=== PATIENT | female | born 1935 | race Caucasian/White ===

== ENCOUNTER 2017-09-18 02:56 | Outpatient (CLI) | payer MEDICARE ==
[~2017-09-18 02:56] MED LIST: AMLO2.5T2 PO; BIOIDENTICAL HORMONE; CARV25TA PO; DIGO250T PO; DULO60CA45 PO; FLEC100T2 PO; LEVO100T PO; LEVO1CAP3 PO; LIRA0.6P2 SUBCUT; METF500T PO; OMEP20TA23 PO; WARF3TAB PO; WARF5TAB PO
== END 2017-09-18 23:59 | disposition home or self-care (01) ==
LOC: DIABETIC 02:56
PROVIDERS: ATTEND Specialist
DX: E11.65 Type 2 diabetes mellitus with hyperglycemia (principal)
CPT/HCPCS: G0108

== ENCOUNTER 2017-12-16 04:20 | Outpatient (CLI) | payer MEDICARE | END 2017-12-16 23:59 | disposition home or self-care (01) | LOC: DIABETIC 04:20 | PROVIDERS: ATTEND Specialist | DX: E11.65 Type 2 diabetes mellitus with hyperglycemia (principal); I10 Essential (primary) hypertension | CPT/HCPCS: G0108 ==

== ENCOUNTER 2018-03-17 03:36 | Outpatient (CLI) | payer MEDICARE | END 2018-03-17 23:59 | disposition home or self-care (01) | LOC: DIABETIC 03:36 | PROVIDERS: ATTEND Specialist | DX: E11.9 Type 2 diabetes mellitus without complications (principal) | CPT/HCPCS: G0108 ==

== ENCOUNTER 2018-08-14 02:25 | Outpatient (CLI) | payer MEDICARE | END 2018-08-14 23:59 | disposition home or self-care (01) | LOC: DIABETIC 02:25 | PROVIDERS: ATTEND Specialist | DX: E11.9 Type 2 diabetes mellitus without complications (principal); I10 Essential (primary) hypertension; Z79.84 Long term (current) use of oral hypoglycemic drugs; Z90.710 Acquired absence of both cervix and uterus | CPT/HCPCS: G0108 ==

== ENCOUNTER 2018-11-27 03:45 | Outpatient (CLI) | payer MEDICARE | END 2018-11-27 23:59 | disposition home or self-care (01) | LOC: DIABETIC 03:45 | PROVIDERS: ATTEND Specialist | DX: E11.9 Type 2 diabetes mellitus without complications (principal) | CPT/HCPCS: G0108 ==

== ENCOUNTER 2019-02-18 08:54 | Outpatient (CLI) | payer MEDICARE, BC ==
[~2019-02-18] VITALS: Ht 167 cm; Wt 68.9 kg
[2019-02-18] MEDS ORDERED: albuterol 2.5 MG/3 ML nebule NEB PRN (09:30)
== END 2019-02-18 23:59 | disposition home or self-care (01) ==
LOC: RT 08:54
PROVIDERS: ATTEND Internal Medicine Critical Care Medicine
DX: J98.4 Other disorders of lung (principal); I10 Essential (primary) hypertension; E11.9 Type 2 diabetes mellitus without complications; Z79.899 Other long term (current) drug therapy
CPT/HCPCS: 94060; 94727; 94729; 94760

== ENCOUNTER 2019-03-12 08:00 | Outpatient (CLI) | payer MEDICARE, BC | END 2019-03-12 23:59 | disposition home or self-care (01) | LOC: DIABETIC 08:00 | PROVIDERS: ATTEND Family Medicine | DX: E11.65 Type 2 diabetes mellitus with hyperglycemia (principal); Z79.899 Other long term (current) drug therapy; Z79.84 Long term (current) use of oral hypoglycemic drugs; Z79.891 Long term (current) use of opiate analgesic; Z79.01 Long term (current) use of anticoagulants | CPT/HCPCS: G0108 ==

== ENCOUNTER 2019-06-11 03:32 | Outpatient (CLI) | payer MEDICARE, BC | END 2019-06-11 23:59 | disposition home or self-care (01) | LOC: DIABETIC 03:32 | PROVIDERS: ATTEND Family Medicine | DX: E11.65 Type 2 diabetes mellitus with hyperglycemia (principal); E11.319 Type 2 diabetes mellitus with unspecified diabetic retinopathy without macular edema; E11.40 Type 2 diabetes mellitus with diabetic neuropathy, unspecified; E11.21 Type 2 diabetes mellitus with diabetic nephropathy; E11.59 Type 2 diabetes mellitus with other circulatory complications; E11.43 Type 2 diabetes mellitus with diabetic autonomic (poly)neuropathy; K31.84 Gastroparesis; I10 Essential (primary) hypertension; E78.5 Hyperlipidemia, unspecified; Z79.01 Long term (current) use of anticoagulants; Z79.899 Other long term (current) drug therapy | CPT/HCPCS: G0108 ==

== ENCOUNTER 2019-09-09 15:20 | Outpatient (CLI) | payer MEDICARE, BC ==
[~2019-09-09] VITALS: Ht 165.1 cm; Wt 74.8 kg
[2019-09-09 16:46] LABS: TOTAL HEMOGLOBIN 15.3 G/dl (12.0-16.0)
[2019-09-09] MEDS ORDERED: albuterol 2.5 MG/3 ML nebule NEB PRN (17:00)
== END 2019-09-09 23:59 | disposition home or self-care (01) ==
LOC: RT 15:20
PROVIDERS: ATTEND Internal Medicine
DX: R06.02 Shortness of breath (principal)
CPT/HCPCS: 85018; 94060; 94727; 94729; 94760

== ENCOUNTER 2019-09-14 04:04 | Outpatient (CLI) | payer MEDICARE, BC | END 2019-09-14 23:59 | disposition home or self-care (01) | LOC: DIABETIC 04:04 | PROVIDERS: ATTEND Family Medicine | DX: E11.9 Type 2 diabetes mellitus without complications (principal) | CPT/HCPCS: G0108 ==

== ENCOUNTER 2019-09-22 04:41 | Outpatient (CLI) | payer MEDICARE, BC | END 2019-09-22 23:59 | disposition home or self-care (01) | LOC: RT 04:41 | PROVIDERS: ATTEND Internal Medicine Critical Care Medicine | DX: J84.10 Pulmonary fibrosis, unspecified (principal); J98.4 Other disorders of lung | CPT/HCPCS: 94618 ==

== ENCOUNTER → 2020-05-19 | Outpatient (CLI) | payer MEDICARE, BC ==
[~2020-05-19] MED LIST changes: -WARF5TAB PO; +WARF5TAB2 PO
== END | disposition home or self-care (01) ==
LOC: RT 12:42
DX: J98.8 Other specified respiratory disorders (principal); R94.2 Abnormal results of pulmonary function studies
CPT/HCPCS: 94010; 94727; 94729

== ENCOUNTER 2021-04-19 08:39 | Outpatient (CLI) | payer MEDICARE, BC | END 2021-04-19 23:59 | disposition home or self-care (01) | LOC: RT 08:39 | PROVIDERS: ATTEND Internal Medicine | DX: R94.2 Abnormal results of pulmonary function studies (principal) | CPT/HCPCS: 94010; 94727; 94729 ==